=== PATIENT | female | born 1975 | race Caucasian/White ===

== ENCOUNTER 2018-10-09 11:38 | Emergency (ER) | payer MEDICAID ==
[~2018-10-09] VITALS: Ht 170.2 cm; Wt 81.8 kg
[2018-10-09 14:17] VITALS: BP 150/88
== END 2018-10-09 15:24 | disposition home or self-care (01) ==
LOC: EMS 11:39
DX: S93.402A Sprain of unspecified ligament of left ankle, initial encounter (principal); X50.1XXA Overexertion from prolonged static or awkward postures, initial encounter; Y93.89 Activity, other specified; Y92.89 Other specified places as the place of occurrence of the external cause; Y99.8 Other external cause status
CPT/HCPCS: 29515